=== PATIENT | male | born 2000 | race Caucasian/White ===

== ENCOUNTER 2019-04-27 08:43 | Emergency (ER) | payer SELFPAY ==
[2019-04-27] MEDS ORDERED: Sodium Chloride 0.9% 1000 ML 1,000 ML IV STA (08:54)
--- NOTE | 2019-04-27 08:59 | ERPHSYRPT ---
- History of Present Illness Time Seen by Provider: 04/27/19 08:56 Historian: patient Exam Limitations: no limitations Physician History: 19-year-old white male who states she is previously healthy arrives with "flulike symptoms" he states he's been having nausea vomiting since yesterday states she's not been feeling well for a week and a half. Patient states he been having some epigastric pain. Patient does state that he gets ulcers every 2 weeks. Past medical history negative past surgical history negative. Social history positive tobacco use Timing/Duration: other (epigastric pain times one and half weeks vomiting since yesterday) Quality: aching Abdominal Pain Onset Location: epigastric Pain Radiation: no radiation Severity of Pain-Max: moderate Severity of Pain-Current: mild Modifying Factors: Improves With: nothing, vomiting. Worsens With: analgesics, antacids, breathing, coughing, defecating, eating, exercise, lying down, movement, palpation, rest, urinating Associated Symptoms: nausea, vomiting, No back, No chest pain, No diaphoresis, No diarrhea, No fever/chills, No fatigue, No headache, No heartburn, No loss of appetite, No neck pain, No rash, No shortness of breath, No syncope, No testicular pain Previous symptoms: other (patient states he gets ulcer-like symptomsevery 2 weeks) Allergies/Adverse Reactions: amoxicillin trihydrate [From Augmentin] Allergy (Intermediate, Verified 09:13) Hives potassium clavulanate [From Augmentin] Allergy (Intermediate, Verified 04/27/19 09:13) Hives Hx Tetanus, Diphtheria Vaccination/Date Given: Yes Hx Influenza Vaccination/Date Given: No Hx Pneumococcal Vaccination/Date Given: No - Review of Systems Constitutional: No Fever, No Chills Eyes: No Symptoms Ears, Nose, & Throat: No Symptoms Respiratory: No Cough, No Dyspnea Cardiac: No Chest Pain, No Edema, No Syncope Abdominal/Gastrointestinal: Abdominal Pain (epigastric pain), Nausea, Vomiting, No Diarrhea, No Constipation, No Hematemesis, No Hematochezia, No Melena, No Dysphagia, No Appetite Changes Genitourinary Symptoms: No Dysuria Musculoskeletal: No Back Pain, No Neck Pain Skin: No Rash Neurological: No Dizziness, No Focal Weakness, No Sensory Changes Psychological: No Symptoms Endocrine: No Symptoms All Other Systems: Reviewed and Negative - Past Medical History Pertinent Past Medical History: Yes Neurological History: No Pertinent History ENT History: No Pertinent History Cardiac History: No Pertinent History Respiratory History: No Pertinent History Endocrine Medical History: No Pertinent History Musculoskeletal History: No Pertinent History GI Medical History: No Pertinent History History: No Pertinent History Psycho-Social History: No Pertinent History Male Reproductive Disorders: No Pertinent History Other Medical History: infected ingrown toenail yesterday - Past Surgical History Past Surgical History: No Neuro Surgical History: No Pertinent History Cardiac: No Pertinent History Respiratory: No Pertinent History Gastrointestinal: No Pertinent History Genitourinary: No Pertinent History Musculoskeletal: No Pertinent History Male Surgical History: No Pertinent History - Social History Smoking Status: Current every day smoker Exposure to second hand smoke: Yes Drug Use: marijuana Patient Lives Alone: No Significant Family History: kidney stones - Nursing Vital Signs Nursing Vital Signs: Initial Vital Signs Temperature 98.2 F 04/27/19 08:54 Pulse Rate 80 04/27/19 08:54 Respiratory Rate 18 04/27/19 08:54 Blood Pressure 126/74 04/27/19 08:54 O2 Sat by Pulse Oximetry 98 04/27/19 08:54 Pain Scale Pain Intensity 6 - Physical Exam General Appearance: no apparent distress, alert Eye Exam: PERRL/EOMI, eyes nml inspection Ears, Nose, Throat Exam: normal ENT inspection, pharynx normal, moist mucous membranes Neck Exam: normal inspection, non-tender, supple, full range of motion Respiratory Exam: normal breath sounds, lungs clear, No respiratory distress Cardiovascular Exam: regular rate/rhythm, normal heart sounds, capillary refill <2 sec Gastrointestinal/Abdomen Exam: soft, No tenderness, No mass Back Exam: normal inspection, normal range of motion, No CVA tenderness, No vertebral tenderness Extremity Exam: normal inspection, normal range of motion, pelvis stable Neurologic Exam: alert, oriented x 3, cooperative, putty maker II-XII nml as tested, normal mood/affect, nml cerebellar function, sensation nml, No motor deficits Skin Exam: normal color, warm, dry SpO2 Interpretation: normal - Course Nursing assessment & vital signs reviewed: Yes Ordered Tests: Active Orders 24 hr Category Date Time Status IV Insertion STAT Care 04/27/19 08:54 Active AMYLASE Stat Lab 04/27/19 09:12 Completed CBC W DIFF Stat Lab 04/27/19 09:12 Completed CMP Stat Lab 04/27/19 09:12 Completed LIPASE Stat Lab 04/27/19 09:15 Completed Lactic Acid Stat Lab 04/27/19 09:08 Completed UA W/RFX UR CULTURE Stat Lab 04/27/19 09:34 Completed Medication Summary Discontinued Medications Generic Name Dose Route Start Last Admin Trade Name Heather PRN Reason Stop Dose Admin Famotidine 20 mg 04/27/19 09:13 04/27/19 09:19 Pepcid 20 Mg Vial IV 04/27/19 09:14 20 mg STAT ONE Administration Famotidine Confirm 04/27/19 09:15 Pepcid 20 Mg Vial Administered 04/27/19 09:16 Dose 20 mg IV .STK-MED ONE Sodium Chloride 1,000 mls @ 999 mls/hr 04/27/19 08:54 04/27/19 09:13 Sodium Chloride 0.9% 1000 Ml IV 04/27/19 09:54 999 mls/hr .Q1H1M STA Administration Sodium Chloride Confirm 04/27/19 09:00 Sodium Chloride 0.9% 1000 Ml Administered 04/27/19 09:01 Dose 1,000 mls @ ud .ROUTE .STK-MED ONE Ondansetron HCl 4 mg 04/27/19 09:12 04/27/19 09:19 Zofran 4 Mg/2 Ml Vial IV 04/27/19 09:13 4 mg STAT ONE Administration Ondansetron HCl Confirm 04/27/19 09:15 Zofran 4 Mg/2 Ml Vial Administered 04/27/19 09:16 Dose 4 mg .ROUTE .STK-MED ONE Lab/Rad Data: Laboratory Result Diagrams 04/27/19 09:12 04/27/19 09:12 Laboratory Results 04/27/19 04/27/19 04/27/19 Range/Units 09:34 09:15 09:12 WBC (4.0-10.5) K/mm3 RBC (4.1-5.6) M/mm3 Hgb (12.5-18.0) gm/dl Hct (42-50) % MCV (78-100) fl MCH (26-32) pg MCHC (32-36) g/dl RDW (11.5-14.0) % Plt Count (150-450) K/mm3 MPV (6-9.5) fl Gran % (36.0-66.0) % Eos # (Auto) (0-0.5) Absolute Lymphs (auto) (1.0-4.6) Absolute Monos (auto) (0.0-1.3) Lymphocytes % (24.0-44.0) % Monocytes % (0.0-12.0) % Eosinophils % (0.00-5.0) % Basophils % (0.0-0.4) % Absolute Granulocytes (1.4-6.9) Basophils # (0-0.4) Sodium 140 (137-145) mmol/L Potassium 3.7 (3.5-5.1) mmol/L Chloride 103 (98-107) mmol/L Carbon Dioxide 22 (22-30) mmol/L Anion Gap 18.6 H (5-15) MEQ/L BUN 16 (9-20) mg/dL Creatinine 0.95 (0.66-1.25) mg/dL Estimated GFR > 60.0 ML/MIN Glucose 97 (74-106) mg/dL Lactic Acid (0.4-2.0) Calcium 10.2 (8.4-10.2) mg/dL Total Bilirubin 1.30 (0.2-1.3) mg/dL AST 37 (17-59) U/L ALT 49 (0-50) U/L Alkaline Phosphatase 71 (38-126) U/L Serum Total Protein 8.8 H (6.3-8.2) g/dL Albumin 5.0 (3.5-5.0) g/dL Amylase 103 (30-110) U/L Lipase 333 H (23-300) U/L Urine Color DARK YELLOW (YELLOW) Urine Appearance SLIGHTLY CLOUDY (CLEAR) Urine pH 5.0 (5-6) Ur Specific [place] 1.030 (1.005-1.025) Urine Protein 30 (Negative) Urine Ketones SMALL (NEGATIVE) Urine Blood NEGATIVE (0-5) [place]/ul Urine Nitrite NEGATIVE (NEGATIVE) Urine Bilirubin NEGATIVE (NEGATIVE) Urine Urobilinogen 2 (0-1) mg/dL Ur Leukocyte Esterase NEGATIVE (NEGATIVE) Urine WBC (Auto) 6-10 (0-5) /HPF Urine RBC (Auto) 0-2 (0-2) /HPF U Epithel Cells (Auto) NONE (FEW) /HPF Urine Bacteria (Auto) FEW (NEGATIVE) /HPF Urine Mucus (Auto) MANY (NEGATIVE) /HPF Urine Culture Reflexed NO (NO) Urine Glucose NEGATIVE (NEGATIVE) mg/dL 04/27/19 04/27/19 Range/Units 09:12 09:08 WBC 7.6 (4.0-10.5) K/mm3 RBC 5.27 (4.1-5.6) M/mm3 Hgb 16.4 (12.5-18.0) gm/dl Hct 46.1 (42-50) % MCV 87.5 (78-100) fl MCH 31.1 (26-32) pg MCHC 35.6 (32-36) g/dl RDW 12.9 (11.5-14.0) % Plt Count 245 (150-450) K/mm3 MPV 10.7 H (6-9.5) fl Gran % 54.6 (36.0-66.0) % Eos # (Auto) 0.14 (0-0.5) Absolute Lymphs (auto) 2.38 (1.0-4.6) Absolute Monos (auto) 0.90 (0.0-1.3) Lymphocytes % 31.4 (24.0-44.0) % Monocytes % 11.9 (0.0-12.0) % Eosinophils % 1.8 (0.00-5.0) % Basophils % 0.3 (0.0-0.4) % Absolute Granulocytes 4.13 (1.4-6.9) Basophils # 0.02 (0-0.4) Sodium (137-145) mmol/L Potassium (3.5-5.1) mmol/L Chloride (98-107) mmol/L Carbon Dioxide (22-30) mmol/L Anion Gap (5-15) MEQ/L BUN (9-20) mg/dL Creatinine (0.66-1.25) mg/dL Estimated GFR ML/MIN Glucose (74-106) mg/dL Lactic Acid 1.2 (0.4-2.0) Calcium (8.4-10.2) mg/dL Total Bilirubin (0.2-1.3) mg/dL AST (17-59) U/L ALT (0-50) U/L Alkaline Phosphatase (38-126) U/L Serum Total Protein (6.3-8.2) g/dL Albumin (3.5-5.0) g/dL Amylase (30-110) U/L Lipase (23-300) U/L Urine Color (YELLOW) Urine Appearance (CLEAR) Urine pH (5-6) Ur Specific [place] (1.005-1.025) Urine Protein (Negative) Urine Ketones (NEGATIVE) Urine Blood (0-5) [place]/ul Urine Nitrite (NEGATIVE) Urine Bilirubin (NEGATIVE) Urine Urobilinogen (0-1) mg/dL Ur Leukocyte Esterase (NEGATIVE) Urine WBC (Auto) (0-5) /HPF Urine RBC (Auto) (0-2) /HPF U Epithel Cells (Auto) (FEW) /HPF Urine Bacteria (Auto) (NEGATIVE) /HPF Urine Mucus (Auto) (NEGATIVE) /HPF Urine Culture Reflexed (NO) Urine Glucose (NEGATIVE) mg/dL - Progress Progress: improved Progress Note: 04/27/19 10:00 Patient feeling better after Pepcid 20 mg IV, Zofran 4 mg IV and normal saline 1 L. Patient's labs essentially normal with the exception of a lipase of 333 (normal 23-300 ) Will discharge patient will write for Pepcid and Zofran. - Departure Departure Disposition: Home Clinical Impression: Epigastric abdominal pain Vomiting Qualifiers: Vomiting type: unspecified Vomiting Intractability: non-intractable Nausea presence: with nausea Qualified Code(s): R11.2 - Nausea with vomiting, unspecified Condition: Fair Critical Care Time: No Additional Instructions: Return home. Plenty of fluids clear fluids only 24-48 hours if abdominal pain nausea or vomiting. Pepcid 20 mg orally twice a day #28 . Zofran 4 mg orally every 6 hours as needed for nausea and vomiting. Followup with your family (list) Return for acute distress or for severe symptoms. Prescriptions: Ondansetron ODT 4 MG [Zofran Odt 4 mg] 4 mg PO Q6H PRN PRN #10 tab.rapdis PRN Reason: nausea and vomiting Famotidine 20 mg [Pepcid 20 MG] 20 mg PO BID #28 tablet
[2019-04-27] MEDS ORDERED: Sodium Chloride 0.9% 1000 ML 1,000 ML ONE (09:00)
[2019-04-27 09:07] VITALS: O2SAT 98
[2019-04-27] MEDS ORDERED: Zofran 4 MG/2 ML VIAL IV ONE (09:12)
[2019-04-27] MEDS ORDERED: Pepcid 20 MG VIAL IV ONE ×2 (09:13→09:15)
[2019-04-27] MEDS ORDERED: Zofran 4 MG/2 ML VIAL ONE (09:15)
[2019-04-27 09:25] LABS: ALKALINE PHOSPHATASE 71 U/L (38-126); AMYLASE 103 U/L (30-110); ANION GAP 18.6 MEQ/L (5-15); BASOPHIL % 0.3 % (0.0-0.4); BLOOD UREA NITROGEN 16 mg/dL (9-20); Basophil (Absolute #) 0.02 (0-0.4); CHLORIDE 103 mmol/L (98-107); Calcium 10.2 mg/dL (8.4-10.2); Carbon Dioxide 22 mmol/L (22-30); Creatinine 1 0.95 mg/dL (0.66-1.25); Eosinophil % 1.8 % (0.00-5.0); Eosinophil (Absolute #) 0.14 (0-0.5); Glucose 97 mg/dL (74-106); Granulocyte Absolute (ANC) 4.13 (1.4-6.9); Granulocytes % 54.6 % (36.0-66.0); Hematocrit 46.1 % (42-50); Hemoglobin 16.4 gm/dl (12.5-18.0); Lymphocyte (Absolute #) 2.38 (1.0-4.6); Lymphocytes % 31.4 % (24.0-44.0); Mean Cell Volume 87.5 fl (78-100); Mean Corpuscular Hemoglobin 31.1 pg (26-32); Mean Corpuscular Hgb Concent. 35.6 g/dl (32-36); Mean Platelet Volume 10.7 fl (6-9.5); Monocytes % 11.9 % (0.0-12.0); Platelet Count 245 K/mm3 (150-450); Potassium 3.7 mmol/L (3.5-5.1); Red Blood Count 5.27 M/mm3 (4.1-5.6); Red Cell Distribution Width 12.9 % (11.5-14.0); SGOT/AST 37 U/L (17-59); SGPT/ALT 49 U/L (0-50); SODIUM 140 mmol/L (137-145); Total Protein 8.8 g/dL (6.3-8.2); White Blood Count 7.6 K/mm3 (4.0-10.5)
[2019-04-27 09:46] LABS: Appearance SLIGHTLY CLOUDY (CLEAR); Bacteria FEW /HPF (NEGATIVE); Bilirubin NEGATIVE (NEGATIVE); Blood NEGATIVE Ery/ul (0-5); Glucose NEGATIVE (NEGATIVE); Ketones SMALL (NEGATIVE); Leukocyte Esterase NEGATIVE (NEGATIVE); Mucus MANY /HPF (NEGATIVE); Nitrite NEGATIVE (NEGATIVE); Protein,Urine Dip 30 (Negative); RBC 0-2 /HPF (0-2); Urobilinogen 2 mg/dL (0-1)
[2019-04-27 10:09] VITALS: BP 136/74; PULSE 58
== END 2019-04-27 10:18 | disposition home or self-care (01) ==
LOC: ED 08:43
DX: R10.13 Epigastric pain (principal); R11.2 Nausea with vomiting, unspecified; F17.200 Nicotine dependence, unspecified, uncomplicated
CPT/HCPCS: 36000; 36415; 80053; 81001; 82150; 83605; 83690; 85025; 96360; 96374; 96375; 99284; J2405